=== PATIENT | male | born 1965 | race Caucasian/White ===

== ENCOUNTER 2019-09-30 17:06 | Emergency (ER) | payer OTHER ==
[~2019-09-30] VITALS: Ht 177.8 cm; Wt 78.0 kg
[2019-09-30 17:34] VITALS: BP 140/83
[2019-09-30] MEDS ORDERED: PROPARACAINE OPHTH 0.5%, 15ML ONE (18:19)
[2019-09-30] MEDS ORDERED: FLUORESCEIN OPHTHALMIC 1 MG STRIP ONE (18:19)
[2019-09-30] MEDS ORDERED: PROPARACAINE OPHTH 0.5%, 15ML EACHEYE ONE (18:30)
[2019-09-30] MEDS ORDERED: FLUORESCEIN OPHTHALMIC 1 MG STRIP EACHEYE ONE (18:30)
[2019-09-30] MEDS ORDERED: DIPH,PERTUSS(ACELL),TET VAC/PF 0.5 ML IM-VACC ONE ×3 (18:55→19:00)
== END 2019-09-30 19:25 | disposition home or self-care (01) ==
LOC: ED 18:15
DX: S00.212A Abrasion of left eyelid and periocular area, initial encounter (principal); X58.XXXA Exposure to other specified factors, initial encounter; Y93.89 Activity, other specified; Y92.89 Other specified places as the place of occurrence of the external cause; Y99.8 Other external cause status
CPT/HCPCS: 90471; 90715; 99283